=== PATIENT | female | born 1940 | race Caucasian/White ===

== ENCOUNTER 2023-12-08 05:33 | Inpatient (IN) | payer MEDICARE, BC ==
[~2023-12-08] VITALS: Ht 167.6 cm; Wt 63.5 kg
[2023-12-08] MEDS ORDERED: ENZY1CAP5 PO (06:02)
[2023-12-08] MEDS ORDERED: UMEC1BLS IH (06:02)
[2023-12-08] MEDS ORDERED: BISA10SU11 RC (06:02)
[2023-12-08] MEDS ORDERED: BUSP5TAB3 PO (06:02)
[2023-12-08] MEDS ORDERED: ACET650S13 RC (06:02)
[2023-12-08] MEDS ORDERED: DONE5TAB34 PO (06:02)
[2023-12-08] MEDS ORDERED: LACT1CAP69 PO (06:02)
[2023-12-08] MEDS ORDERED: QUET25TA PO (06:02)
[2023-12-08] MEDS ORDERED: ALBU2.5V13 IH (06:02)
[2023-12-08] MEDS ORDERED: ATRO2DRO4 SL (06:02)
[2023-12-08] MEDS ORDERED: roxanol PO (06:02)
[2023-12-08] MEDS ORDERED: CHOL400T15 PO (06:02)
[2023-12-08] MEDS ORDERED: ASCO500C18 PO (06:02)
[2023-12-08] MEDS ORDERED: LORA2ORA PO (06:02)
[2023-12-08] MEDS ORDERED: ALBU8.5H8 IH (06:02)
[2023-12-08] MEDS ORDERED: PRAV40TA3 PO (06:02)
[2023-12-08] MEDS ORDERED: AMLO2.5T4 PO (06:02)
[2023-12-08] MEDS ORDERED: PANT40TA49 PO (06:02)
[2023-12-08] MEDS ORDERED: ACET-73 PO (06:02)
[2023-12-08] MEDS ORDERED: TRAZ-257 PO (06:02)
[2023-12-08] MEDS ORDERED: ONDA4TAB11 PO (06:02)
[2023-12-08] MEDS ORDERED: MULT-596 PO (06:02)
[2023-12-08] MEDS ORDERED: SOLI5TAB2 PO (06:02)
[2023-12-08] MEDS ORDERED: THIO300C PO (06:02)
[2023-12-08] MEDS ORDERED: tobramycin HHN (06:02)
[2023-12-08] MEDS ORDERED: AZIT500T4 PO (06:02)
[2023-12-08 06:20] LABS: ABG BASE EXCESS 1.1 mmol/L (-2.0-2.0); ABG HCO3 27.4 mmol/L (22.0-26.0); ABG PCO2 51.9 mmHg (35.0-48.0); ABG PH 7.341 (7.340-7.440); ABG PO2 79.1 mmHg (75.0-100.0); ABG SITE LEFT BRACHIAL; ABG TOTAL HEMOGLOBIN 10.3 G/dL (12.0-16.0); AaDO2 94.9 mmHg; COHb 0.3 % (0.0-3.9); MetHb 0.2 % (0.0-1.5); O2Hb 93.5 % (94.0-97.0)
[2023-12-08 07:24] LABS: BASOPHILS % (AUTO) 0.2 % (0.0-2.0); HEMATOCRIT 28.1 % (31.2-41.9); HEMOGLOBIN 9.4 g/dL (10.9-14.3); LYMPHOCYTES # (AUTO) 3.9 K/uL (0.8-4.8); LYMPHOCYTES % (AUTO) 24.3 % (20.5-51.5); MEAN CORPUSCULAR HEMOGLOBIN 29.5 uug (24.7-32.8); MEAN CORPUSCULAR HGB CONC 33 g/dL (32.3-35.6); MEAN CORPUSCULAR VOLUME 88.6 fL (75.5-95.3); MONOCYTES # (AUTO) 0.4 K/uL (0.1-1.30); MONOCYTES % (AUTO) 2.4 % (0.0-11.0); NEUTROPHILS # (AUTO) 11.9 K/uL (1.8-8.9); NEUTROPHILS % (AUTO) 73.1 % (38.5-71.5); PLATELET COUNT (AUTO) 270 K/uL (179-408); RED BLOOD CELL COUNT(AUTO) 3.18 MIL/uL (3.63-4.92); RED CELL DISTRIBUTION WIDTH 14.5 % (12.3-17.7); WHITE BLOOD COUNT (AUTO) 16.3 K/uL (3.8-11.8)
[2023-12-08] MEDS ORDERED: VANCOMYCIN IV 200 ML ONE (07:27)
[2023-12-08] MEDS ORDERED: CEFEPIME HCL 1 G VIAL ONE (07:27)
[2023-12-08] MEDS: DEXAMETHASONE SOD PHOSPHATE 4 MG INJ IV ONE (07:28)
[2023-12-08] MEDS ORDERED: DEXAMETHASONE SOD PHOSPHATE 10 MG INJ ONE (07:28)
[2023-12-08 07:30] LABS: DIFFERENTIAL COMMENT 1
[2023-12-08] MEDS: VANCOMYCIN IV 1,000 MG in IV DEXTROSE 5% 250 ML IV ONE (07:30)
[2023-12-08 07:33] LABS: CALCIUM 8.1 mg/dL (8.5-10.1); CARBON DIOXIDE 27 mmol/L (21-32); CHLORIDE 102 mmol/L (98-107); CREATININE 1.2 mg/dL (0.6-1.3); GLUCOSE 96 mg/dL (74-106); POTASSIUM 3.8 mmol/L (3.5-5.1); SODIUM SERUM 138 mmol/L (136-145); UREA NITROGEN, BLOOD 28 mg/dL (7-18)
[2023-12-08 07:46] LABS: ALANINE AMINOTRANSFERASE 42 U/L (14-59); ALBUMIN 2.6 g/dL (3.4-5.0); ALKALINE PHOSPHATASE 72 U/L (50-136); ASPARTATE AMINOTRANSFERASE 29 U/L (15-37); BILIRUBIN,DIRECT 0.1 mg/dL (0.0-0.2); BILIRUBIN,TOTAL 0.6 mg/dL (0.2-1.0); NT-PRO BNP 528 pg/mL (0-125)
[2023-12-08] MEDS: CEFEPIME HCL 1 G in IV DEXTROSE 5% 50 ML IV ONE (07:53)
[2023-12-08] MEDS ORDERED: MAGNESIUM HYDROXIDE 30 ML LIQUID UDC PO PRN (09:30)
[2023-12-08 10:24] LABS: *BILIRUBIN,URIN NEGATIVE (NEGATIVE); *CLARITY,URINE CLEAR (CLEAR); *COLOR,URINE YELLOW (YELLOW); *KETONES,URINE TRACE (NEGATIVE); *PROTEIN,URINE 1+ (NEGATIVE); *UROBILINOGEN,URINE 0.2 E.U./dl (NORMAL); LEUKOCYTE ESTERASE ,URINE NEGATIVE (NEGATIVE); NITRITE, URINE NEGATIVE (NEGATIVE); UGLUCOSE NEGATIVE (NEGATIVE)
[2023-12-08 10:29] LABS: *BLOOD, URINE TRACE (NEGATIVE)
[2023-12-08] MEDS ORDERED: ONDANSETRON 4 MG/2 ML VIAL IV PRN (10:36)
[2023-12-08] MEDS ORDERED: ACETAMINOPHEN 325 MG TABLET PO PRN (10:36)
[2023-12-08] MEDS ORDERED: REMEDY ESSENTIAL ZINC PASTE 113 GM TP PRN (10:38)
[2023-12-08 11:03] LABS: BACTERIA,URINE MODERATE /HPF (NONE SEEN); SQUAMOUS EPITHELIAL CELL,UR MODERATE /HPF (NONE SEEN)
[2023-12-08 11:04] LABS: COARSE GRANULAR CASTS,URINE 0-3 /LPF
[2023-12-08 11:28] VITALS: BP 110/52; TEMP 97.2; O2SAT 94
[2023-12-08] MEDS ORDERED: AMOX-430 PO (12:05)
== END 2023-12-08 15:20 | disposition hospice, home (50) | DRG 871 ==
LOC: ER 05:35 → TELE3 10:31
PROVIDERS: ADMIT Nurse Practitioner Acute Care; ATTEND Nurse Practitioner Acute Care
DX: A41.50 Gram-negative sepsis, unspecified (principal); G93.41 Metabolic encephalopathy; J15.69 Pneumonia due to other Gram-negative bacteria; J96.02 Acute respiratory failure with hypercapnia; J96.01 Acute respiratory failure with hypoxia; S22.41XA Multiple fractures of ribs, right side, initial encounter for closed fracture; E44.0 Moderate protein-calorie malnutrition; D68.59 Other primary thrombophilia; F03.94 Unspecified dementia, unspecified severity, with anxiety; J44.0 Chronic obstructive pulmonary disease with (acute) lower respiratory infection; R65.20 Severe sepsis without septic shock; Z68.22 Body mass index [BMI] 22.0-22.9, adult; E78.5 Hyperlipidemia, unspecified; Z66 Do not resuscitate; E88.09 Other disorders of plasma-protein metabolism, not elsewhere classified; Z74.01 Bed confinement status; D63.8 Anemia in other chronic diseases classified elsewhere; K21.9 Gastro-esophageal reflux disease without esophagitis; M81.0 Age-related osteoporosis without current pathological fracture; Z79.899 Other long term (current) drug therapy; Z95.0 Presence of cardiac pacemaker; W06.XXXA Fall from bed, initial encounter; Y92.092 Bedroom in other non-institutional residence as the place of occurrence of the external cause; I11.9 Hypertensive heart disease without heart failure; R79.89 Other specified abnormal findings of blood chemistry
CPT/HCPCS: 36415; 36600; 70450; 71045; 71250; 72125; 82803; 83605; 84484; 85025; 85730; 87040; 93005; A4606; A4663; G0378; J0692; J1100; J3370